=== PATIENT | female | born 1985 | race Caucasian/White ===

== ENCOUNTER 2016-10-21 16:52 | Inpatient (IN) | payer MEDICAID, OTHER ==
[2016-10-21 16:52] VITALS: BMI 36.2
[2016-10-21] MEDS ORDERED: Sodium Chloride 0.9% 1,000 ML IV STA (17:08)
--- NOTE | 2016-10-21 17:11 | ED PDOC ---
HPI: Abdomen Time Seen by Provider: 10/21/16 17:00 Chief Complaint (Nursing): GI Problem Chief Complaint (Provider): abdominal pain History Per: Patient (30 y/o female 9 months vaginal delivery here with complaint of moderate/severate hypogastric abdominal pain worsening with rice consumption today. Notes diarrhea and self-induced vomiting. No fevers/ chills. No abdominal surgeries. States she is ending menses and has had similar symptoms in past at end of menses.) Past Medical History Reviewed: Historical Data, Nursing Documentation, Vital Signs Vital Signs: Last Vital Signs Temp 98.7 F 10/21/16 16:54 Pulse 74 10/21/16 16:54 Resp 16 10/21/16 16:54 BP 113/53 L 10/21/16 16:54 Pulse Ox 100 10/21/16 17:12 - Family History Family History: States: No Known Family Hx - Home Medications Home Medications: Ambulatory Orders Medication Instructions Recorded Vit No.126/Iron/FA 1 each PO DAILY 01/08/16 [Classic Tablet] - Allergies Allergies/Adverse Reactions: Allergies Allergy/AdvReac Type Severity Reaction Status Date / Time No Known Allergies Allergy Verified 10/21/16 16:54 Review of Systems ROS Statement: Except As Marked, All Systems Reviewed And Found Negative Gastrointestinal: Positive for: Abdominal Pain, Diarrhea Physical Exam - Reviewed Nursing Documentation Reviewed: Yes Vital Signs Reviewed: Yes - Physical Exam Appears: Positive for: Well, Non-toxic, No Acute Distress Head Exam: Positive for: ATRAUMATIC, NORMAL INSPECTION, NORMOCEPHALIC Skin: Positive for: Normal Color, Warm, DRY Eye Exam: Positive for: EOMI, Normal appearance, PERRL ENT: Positive for: Normal ENT Inspection Neck: Positive for: Normal, Painless ROM Cardiovascular/Chest: Positive for: Regular Rate, Rhythm Respiratory: Positive for: CNT, Normal Breath Sounds Gastrointestinal/Abdominal: Positive for: Normal Exam, Bowel Sounds (hypoactive bowel sounds. ? hypogastric tenderness noted.), Soft Back: Positive for: Normal Inspection Extremity: Positive for: Normal ROM Neurologic/Psych: Positive for: Alert, Oriented - Laboratory Results Result Diagrams: 10/21/16 17:15 10/21/16 17:15 Urine POC: Negative Urine dip results: Positive for: Leukocyte Esterase, Blood - ECG O2 Sat by Pulse Oximetry: 100 - Progress ED Course And Treament: NS 1 liter wide open pepcid 20 mg iv x 1 dose zofran 4 mg iv x 1 dose morphine 4 mg iv x 1 dose; prepped for CT abdomen/pelvis udip : (+) blood (+) leuk (patient on last day of menses) will send for ucx. obstructive series: IMPRESSION: Severe constipation with marked distension of the right colon with feces. Oral contrast is seen within the stomach. Fleet enema ordered. Patient pending CT abd/pelvis. Disposition - Clinical Impression Clinical Impression: Abdominal pain - Patient ED Disposition Is Patient to be Admitted: Transfer of Care - Disposition Disposition: Transfer of Care Disposition Time: 20:00 Condition: FAIR Patient Signed Over To: Aliyah Wagoner Handoff Comments: pending CT/re-eval after medication.
[2016-10-21] MEDS ORDERED: Iohexol 240 (50 ml) PO STA (17:18)
[2016-10-21 17:24] LABS: BASO # 0.1 K/uL (0.0-0.2); BASO % 0.5 % (0.0-2.0); EOS # 0.4 K/uL (0.0-0.7); EOS % 2.4 % (0.0-4.0); HEMATOCRIT 41.8 % (34.0-47.0); LYMPH # 1.3 K/uL (1.0-4.3); LYMPH % 6.9 % (20.0-40.0); MEAN CELL VOLUME 74.2 fl (81.0-99.0); MEAN CORPUSCULAR HEMOGLOBIN 24.9 pg (27.0-31.0); MEAN CORPUSCULAR HGB CONC 33.6 g/dL (33.0-37.0); MEAN PLATELET VOLUME 7.7 fl (7.2-11.7); MONO # 0.6 K/uL (0.0-0.8); MONO % 3.4 % (0.0-10.0); NEUT # 16.1 K/uL (1.8-7.0); NEUT % 86.8 % (50.0-75.0); PLATELET COUNT 309 K/uL (130-400); RED CELL DISTRIBUTION WIDTH 16.2 % (11.5-14.5); WHITE BLOOD COUNT 18.5 K/uL (4.8-10.8)
[2016-10-21] MEDS ORDERED: Iohexol 240 (50 ml) ONE (17:40)
[2016-10-21 17:41] LABS: ALB/GLOB RATIO 1.1 (1.0-2.1); ALKALINE PHOSPHATASE 121 U/L (38-126); ALT/SGPT 30 U/L (9-52); AST/SGOT 44 U/L (14-36); BILIRUBIN,TOTAL 0.9 mg/dl (0.2-1.3); BLOOD UREA NITROGEN 15 mg/dl (7-17); CALCIUM 9.1 mg/dL (8.4-10.2); CARBON DIOXIDE 21 mmol/L (22-30); CHLORIDE 104 mmol/L (98-107); GFR AFRICAN-AMERICAN > 60; GLUCOSE,RANDOM 156 mg/dL (65-105); LIPASE 46 U/L (23-300); SODIUM 135 mmol/l (132-148)
[2016-10-21 17:44] LABS: POTASSIUM 4.7 MMOL/L (3.6-5.0)
[2016-10-21 17:47] LABS: RBC URINE 1681 /hpf (0-3); URINE BACTERIA OCC (<OCC); URINE BILIRUBIN NEGATIVE (NEGATIVE); URINE BLOOD LARGE (NEGATIVE); URINE COLOR AMBER (YELLOW); URINE GLUCOSE (UA) NEG (Normal); URINE KETONE TRACE mg/dL (NEGATIVE); URINE LEUKOCYTE ESTERASE SMALL Leu/uL (Negative); URINE PROTEIN 100 mg/dL (NEGATIVE); URINE UROBILINOGEN 0.2-1.0 mg/dL (0.2-1.0); WBC CLUMPS MOD /hpf; WBC URINE 61 /hpf (0-5)
--- NOTE | 2016-10-21 18:36 | RAD ---
PROCEDURE: Radiographs of the chest and abdomen (obstructive series) HISTORY: abdominal pain COMPARISON: No prior. FINDINGS: CHEST: The cardiomediastinal silhouette appears within normal limits of size. No focal consolidation, significant pleural effusion, or definite pneumothorax identified. Please note that chest x-ray has limited sensitivity for the detection of pulmonary masses. ABDOMEN AND PELVIS: Severe constipation with marked distension of the right colon with feces. Oral contrast is seen within the stomach. No definite free air. No acute osseous abnormality is detected. IMPRESSION: Severe constipation with marked distension of the right colon with feces. Oral contrast is seen within the stomach.
[2016-10-21] MEDS ORDERED: Iohexol 300 100 ML IJ ONE (19:35)
[2016-10-21] MEDS ORDERED: Sodium Chloride 0.9% 50 ML IV ONE (19:35)
[2016-10-21 19:42] LABS: BASOPHIL 1 % (0-2); EOSINOPHIL 1 % (0-7); NEUTROPHIL 88 % (42-75); REACTIVE LYMPHOCYTES 1 % (0-0); TOTAL CELLS COUNTED 100
--- NOTE | 2016-10-21 20:39 | CT ---
EXAM: CT Abdomen and Pelvis With Intravenous Contrast. CLINICAL HISTORY: 30 years old, female; Pain; Abdominal pain; Generalized TECHNIQUE: Axial computed tomography images of the abdomen and pelvis with intravenous contrast. This CT exam was performed using one or more of the following dose reduction techniques: automated exposure control, adjustment of the mA and/or kV according to patient size, and/or use of iterative reconstruction technique. Coronal and sagittal reformatted images were created and reviewed. CONTRAST: 95 mL of Omnipaque administered intravenously. EXAM DATE/TIME: 10/21/2016 5:18 PM COMPARISON: No relevant prior studies available. FINDINGS: LIMITATIONS: Exam is somewhat limited by mild streak/motion artifact. LOWER THORAX: No infiltrate seen in the lung bases. ABDOMEN: LIVER: Hepatomegaly, with the liver measuring 20 cm in length on the coronal images. GALLBLADDER AND BILE DUCTS: No CT evidence of acute cholecystitis. No evidence of significant biliary ductal dilatation. PANCREAS: No CT evidence of acute pancreatitis. SPLEEN: No acute abnormality of the spleen identified. ADRENALS: No acute abnormality of the adrenal glands identified. KIDNEYS AND URETERS: No acute abnormality of the kidneys identified. No evidence of significant hydrouereteronephrosis. STOMACH AND BOWEL: Focal wall thickening at the cecal base, most likely reactive in etiology, related to the appendicitis. Otherwise, no significant abnormality of the bowel is identified. No acute abnormality of the stomach or duodenum identified. No evidence of small bowel obstruction. APPENDIX: Appendix is seen, extending medially and superiorly from the cecum, images 113-138 of series 3. It is abnormally dilated, measuring up to 1.4 cm in diameter (normal less than 6 mm). Its lumen is fluid-filled. Its wall enhances. Its wall is thickened. There are mild inflammatory changes in the periappendiceal fat. Findings are compatible with acute appendicitis. No nearby extraluminal air seen to suggest perforated appendicitis. No evidence of a significant focal fluid collection or abscess. PELVIS: BLADDER: No acute abnormality of the bladder identified. REPRODUCTIVE:No acute abnormality of the reproductive organs is seen. No acute abnormality of the uterus identified. No evidence of large adnexal masses. ABDOMEN and PELVIS: INTRAPERITONEAL SPACE: Small amount of free fluid in the cul-de-sac. No evidence of free air. BONES/JOINTS: No acute fractures or other acute bony abnormality noted. SOFT TISSUES: No acute abnormality of the visualized soft tissues is seen. VASCULATURE: No evidence of abdominal aortic aneurysm. No evidence of periaortic hemorrhage. LYMPH NODES: No evidence of diffuse lymphadenopathy. IMPRESSION: - Acute appendicitis. There is no evidence of abscess formation or perforation. - See above for remaining findings.
[2016-10-21] MEDS ORDERED: Piperacillin/Tazobact 3.375 GM in Sodium Chloride 0.9% 100 ML IVPB ONE (20:55)
[2016-10-21] MEDS ORDERED: Piperacillin/Tazobact 3.375 gm Inj IVPB ONE (21:02)
--- NOTE | 2016-10-21 21:02 | ED PDOC ---
- Laboratory Results Result Diagrams: 10/21/16 17:15 10/21/16 17:15 Urine POC: Negative - ECG ECG: Positive for: Viewed By Me (reviewed by ED attending) ECG Rhythm: Positive for: Sinus Rhythm O2 Sat by Pulse Oximetry: 100 - Progress ED Course And Treament: Case endorsed to mortgage underwriter from [employer] CASTILLO pending CT abd/pelvis EXAM: CT Abdomen and Pelvis With Intravenous Contrast. CLINICAL HISTORY: 30 years old, female; Pain; Abdominal pain; Generalized TECHNIQUE: Axial computed tomography images of the abdomen and pelvis with intravenous contrast. This CT exam was performed using one or more of the following dose reduction techniques : automated exposure control, adjustment of the mA and/or kV according to patient size, and/ or use of iterative reconstruction technique. Coronal and sagittal reformatted images were created and reviewed. CONTRAST: 95 mL of Omnipaque administered intravenously. EXAM DATE/TIME: 10/21/2016 5:18 PM COMPARISON: No relevant prior studies available. FINDINGS: LIMITATIONS: Exam is somewhat limited by mild streak/motion artifact. LOWER THORAX: No infiltrate seen in the lung bases. ABDOMEN: LIVER: Hepatomegaly, with the liver measuring 20 cm in length on the coronal images. GALLBLADDER AND BILE DUCTS: No CT evidence of acute cholecystitis. No evidence of significant biliary ductal dilatation. PANCREAS: No CT evidence of acute pancreatitis. SPLEEN: No acute abnormality of the spleen identified. ADRENALS: No acute abnormality of the adrenal glands identified. KIDNEYS AND URETERS: No acute abnormality of the kidneys identified. No evidence of significant hydrouereteronephrosis. STOMACH AND BOWEL: Focal wall thickening at the cecal base, most likely reactive in etiology, related to the appendicitis. Otherwise, no significant abnormality of the bowel is identified. No acute abnormality of the stomach or duodenum identified. No evidence of small bowel obstruction. APPENDIX: Appendix is seen, extending medially and superiorly from the cecum, images 113-138 of series 3. It is abnormally dilated, measuring up to 1.4 cm in diameter (normal less than 6 mm). Its lumen is fluid-filled. Its wall enhances. Its wall is thickened. There are mild inflammatory changes in the periappendiceal fat. Findings are compatible with acute appendicitis. No nearby extraluminal air seen to suggest perforated appendicitis. No evidence of a significant focal fluid collection or abscess. PELVIS: BLADDER: No acute abnormality of the bladder identified. REPRODUCTIVE:No acute abnormality of the reproductive organs is seen. No acute abnormality of the uterus identified. No evidence of large adnexal masses. ABDOMEN and PELVIS: INTRAPERITONEAL SPACE: Small amount of free fluid in the cul-de-sac. No evidence of free air. BONES/JOINTS: No acute fractures or other acute bony abnormality noted. SOFT TISSUES: No acute abnormality of the visualized soft tissues is seen. VASCULATURE: No evidence of abdominal aortic aneurysm. No evidence of periaortic hemorrhage. LYMPH NODES: No evidence of diffuse lymphadenopathy. IMPRESSION: - Acute appendicitis. There is no evidence of abscess formation or perforation. - See above for remaining findings Patient given IV zosyn dose in ED. Case discussed with Dr. Krishnan, Vp Clinical on-call, for admission. Case discussed with Dr. Cr; Surgeon on-call; recommends admitting under Hospitalist, NPO after midnight, and likely surgery in am. Case discussed with Dr. Gaspar, Hospitalist on-call, for admission. Disposition - Clinical Impression Clinical Impression: Appendicitis, UTI (urinary tract infection) - POA Present On Arrival: None - Disposition Disposition: Admitted as In-Patient Disposition Time: 22:00 Condition: FAIR
[2016-10-21 21:49] LABS: PARTIAL THROMBOPLASTIN TIME 25.7 SECONDS (23.3-32.5)
--- NOTE | 2016-10-21 21:58 | CP.PCM.HP ---
History of Present Illness - History of Present Illness History of Present Illness: CC: abd pain, n/v HPI: This is a 30 y/o female with no chronic medical problems presenting with abdominal pain from about 1 day ago, now accompanied by n/v and frequent bowel mvmts. She states that pain is in R side of abdomen. Denies f/c. Denies diarrhea. States she initially thought she had food poisoning, but symptoms did not get better, so she came in. ROS: 14 systems reviewed, negative other than HPI MHx: None SHx: Dental surgery in the past Allergy: NKDA Medications: None Family Hx: reviewed, no relevant findings Social Hx: Lives with child, no tobacco, rare EtOH Present on Admission - Present on Admission Any Indicators Present on Admission: No Past Patient History - Past Social History Smoking Status: Never Smoked - PSYCHIATRIC Hx Substance Use: No - SURGICAL HISTORY Hx Surgeries: Yes Meds Allergies/Adverse Reactions: Allergies Allergy/AdvReac Type Severity Reaction Status Date / Time No Known Allergies Allergy Verified 10/21/16 16:54 Physical Exam - Constitutional Appears: No Acute Distress - Head Exam Head Exam: ATRAUMATIC, NORMOCEPHALIC - Eye Exam Eye Exam: EOMI, PERRL - ENT Exam ENT Exam: Mucous Membranes Moist - Neck Exam Neck exam: Positive for: Full Rom - Respiratory Exam Respiratory Exam: Clear to Auscultation Bilateral, NORMAL BREATHING PATTERN - Cardiovascular Exam Cardiovascular Exam: REGULAR RHYTHM, +S1, +S2 - GI/Abdominal Exam GI & Abdominal Exam: Normal Bowel Sounds, Soft, Tenderness - Extremities Exam Extremities exam: Positive for: full ROM, normal inspection - Neurological Exam Neurological exam: Alert, CN II-XII Intact, Oriented x3 - Psychiatric Exam Psychiatric exam: Normal Affect, Normal Mood - Skin Skin Exam: Dry, Warm Results - Vital Signs Recent Vital Signs: Last Vital Signs Temp 98.7 F 10/21/16 16:54 Pulse 74 10/21/16 16:54 Resp 16 10/21/16 16:54 BP 113/53 L 10/21/16 16:54 Pulse Ox 100 10/21/16 21:27 - Labs Result Diagrams: 10/21/16 17:15 10/21/16 17:15 Labs: Laboratory Results - last 24 hr 10/21/16 10/21/16 10/21/16 17:15 17:37 21:25 WBC 18.5 H RBC 5.63 H Hgb 14.0 Hct 41.8 MCV 74.2 L D MCH 24.9 L MCHC 33.6 RDW 16.2 H Plt Count 309 D MPV 7.7 Neut % (Auto) 86.8 H Lymph % (Auto) 6.9 L Howard % (Auto) 3.4 Eos % (Auto) 2.4 Baso % (Auto) 0.5 Neut # 16.1 H Lymph # 1.3 Howard # 0.6 Eos # 0.4 Baso # 0.1 Neutrophils % (Manual) 88 H Lymphocytes % (Manual) 6 L Reactive Lymphs % 1 H Monocytes % (Manual) 3 Eosinophils % (Manual) 1 Basophils % (Manual) 1 Platelet Estimate Normal Poikilocytosis (manual Slight Anisocytosis (manual) Slight Microcytosis (manual) Slight Tear Drop Cells Slight Ovalocytes Slight PT 10.8 INR 1.04 APTT 25.7 Sodium 135 Potassium 4.7 Chloride 104 Carbon Dioxide 21 L Anion Gap 15 BUN 15 Creatinine 0.7 Est GFR ( Amer) > 60 Est GFR (Non-Af Amer) > 60 Random Glucose 156 H Calcium 9.1 Total Bilirubin 0.9 AST 44 H D ALT 30 Alkaline Phosphatase 121 Total Protein 8.0 Albumin 4.2 Globulin 3.8 Albumin/Globulin Ratio 1.1 Lipase 46 Urine Color Tracee Urine Clarity Turbid Urine pH 8.0 Ur Specific [place] 1.027 Urine Protein 100 Urine Glucose (UA) Neg Urine Ketones Trace Urine Blood Large Urine Nitrate Negative Urine Bilirubin Negative Urine Urobilinogen 0.2-1.0 Ur Leukocyte Esterase Small Urine RBC (Auto) 1681 H Urine WBC Clumps (Auto) Mod H Urine Microscopic WBC 61 H Ur Squamous Epith Cells 14 H Amorphous Sediment Occ H Urine Bacteria Occ H - Imaging and Cardiology CT scan - abdomen Status: Report reviewed by me (IMPRESSION:) Assessment & Plan (1) Appendicitis Assessment and Plan: 30 y/o female admitted with appendicitis and possible UTI. 1) Appendicitis -Cont NPO, IVF -Cont Zosyn IV -Pain mgmt as per scale -Surgical consult ([facility]) 2) UTI --zosyn should cover 3) DVT PPx -- SCDs only for now Status: Acute (2) UTI (urinary tract infection) Status: Acute
[2016-10-21] MEDS: Piperacillin/Tazobact 3.375 GM in Sodium Chloride 0.9% 100 ML IVPB SCH (22:33)
[2016-10-21] MEDS: Sodium Chloride 0.9% 1,000 ML IV SCH (23:17)
--- NOTE | 2016-10-22 00:35 | CP.PCM.CON ---
<Anmol Krishnan - Last Filed: 10/22/16 00:27> History of Present Illness - History of Present Illness History of Present Illness: General Surgery Consult Re: Acute Appendicitis HPI: 30F presents to ED C/O periumbilical and RLQ abdominal pain. The pain began yesterday and she thought it would pass after she had a BM but it persisted. She did have a loose BM today. + chills. Denies nausea, but induced emesis herself x 1 to see if it would alleviate her pain, which it did not. PMH: Denies PSH: wisdom teeth removal SH: No tobacco or drug use, social EtOH. Has 9 month old child All: NKDA Meds: Denies Review of Systems - Review of Systems All systems: reviewed and no additional remarkable complaints except (as per HPI ) Past Patient History - Past Social History Smoking Status: Never Smoked - MUSCULOSKELETAL/RHEUMATOLOGICAL Hx Falls: No - PSYCHIATRIC Hx Substance Use: No - SURGICAL HISTORY Hx Surgeries: Yes Meds Allergies/Adverse Reactions: Allergies Allergy/AdvReac Type Severity Reaction Status Date / Time No Known Allergies Allergy Verified 10/21/16 16:54 - Medications Medications: Current Medications Sodium Chloride (Sodium Chloride 0.9%) 1,000 mls @ 100 mls/hr IV .Q10H [facility] Stop: 10/22/16 17:59 Last Admin: 10/21/16 23:17 Dose: 100 mls/hr Piperacillin Sod/Tazobactam (Sod 3.375 gm/ Sodium Chloride) 100 mls @ 100 mls/ hr IVPB Q6 [facility] Last Admin: 10/21/16 22:33 Dose: Not Given Morphine Sulfate (Morphine) 1 mg IVP Q4 PRN PRN Reason: Pain, Mild (1-3) Morphine Sulfate (Morphine) 2 mg IVP Q6 PRN PRN Reason: Pain, moderate (4-7) Ondansetron HCl (Zofran Inj) 4 mg IVP Q6 PRN PRN Reason: Nausea/Vomiting Physical Exam - Constitutional Appears: Non-toxic, No Acute Distress - Head Exam Head Exam: ATRAUMATIC, NORMOCEPHALIC - Eye Exam Eye Exam: EOMI. absent: Scleral icterus - ENT Exam ENT Exam: Mucous Membranes Moist Additional comments: trachea midline - Respiratory Exam Respiratory Exam: NORMAL BREATHING PATTERN. absent: Respiratory Distress - Cardiovascular Exam Cardiovascular Exam: RRR, +S1, +S2 - GI/Abdominal Exam GI & Abdominal Exam: Guarding, Rebound (mild), Soft, Tenderness (in RLQ and periumbilical on R). absent: Distended, Firm, Rigid - Rectal Exam Rectal Exam: Deferred - Extremities Exam Extremities exam: Positive for: pedal pulses present. Negative for: calf tenderness - Back Exam Back exam: absent: CVA tenderness (L), CVA tenderness (R) - Neurological Exam Neurological exam: Alert, Oriented x3 - Psychiatric Exam Psychiatric exam: Normal Affect, Normal Mood - Skin Skin Exam: Dry, Warm Results - Vital Signs Recent Vital Signs: Last Vital Signs Temp 98.7 F 10/21/16 23:17 Pulse 74 10/21/16 23:17 Resp 16 10/21/16 23:17 BP 113/53 L 10/21/16 23:17 Pulse Ox 100 10/21/16 22:31 - Labs Result Diagrams: 10/21/16 17:15 10/21/16 17:15 - Imaging and Cardiology CT scan - abdomen Status: Image reviewed by me, Report reviewed by me Assessment & Plan - Assessment and Plan (Free Text) Assessment: 30F with acute appendicitis Plan: NPO IVF Abx Zofran Morphine To OR (tentatively around 2PM) 10/22/16 D/W Dr. Tayo Krishnan PGY3 <Marco A Cr B - Last Filed: 10/26/16 21:15> Results - Vital Signs Recent Vital Signs: Last Vital Signs Temp 98.7 F 10/23/16 07:58 Pulse 83 10/23/16 07:58 Resp 20 10/23/16 07:58 BP 97/61 L 10/23/16 07:58 Pulse Ox 95 10/23/16 07:58 - Labs Result Diagrams: 10/23/16 06:05 10/23/16 06:05 Attending/Attestation - Attestation I have personally seen and examined this patient.: Yes I have fully participated in the care of the patient.: Yes I have reviewed all pertinent clinical information: Yes Notes (Text): 10/26/16 21:14 Pt was seen and examined at bedside on 10/22/16 Agree with above note and assessment Pt with Acute Appendicitis and Leukocytosis OR for Lap Appendectomy poss Open Consent Plan d/w pt in detail Risk and benefit explained in detail.
[2016-10-22] MEDS: Piperacillin/Tazobact 3.375 GM in Sodium Chloride 0.9% 100 ML IVPB SCH ×4 (03:27→22:59)
[2016-10-22 07:00] LABS: BLOOD UREA NITROGEN 11 mg/dl (7-17); CALCIUM 7.9 mg/dL (8.4-10.2); CARBON DIOXIDE 26 mmol/L (22-30); CHLORIDE 105 mmol/L (98-107); GFR AFRICAN-AMERICAN > 60; GLUCOSE,RANDOM 97 mg/dL (65-105); POTASSIUM 3.6 MMOL/L (3.6-5.0); SODIUM 144 mmol/l (132-148)
[2016-10-22 07:01] LABS: BASO # 0.1 K/uL (0.0-0.2); BASO % 0.6 % (0.0-2.0); EOS # 0.4 K/uL (0.0-0.7); EOS % 3.1 % (0.0-4.0); HEMATOCRIT 38.5 % (34.0-47.0); LYMPH # 1.7 K/uL (1.0-4.3); LYMPH % 13.5 % (20.0-40.0); MEAN CELL VOLUME 76.1 fl (81.0-99.0); MEAN CORPUSCULAR HEMOGLOBIN 24.6 pg (27.0-31.0); MEAN CORPUSCULAR HGB CONC 32.3 g/dL (33.0-37.0); MEAN PLATELET VOLUME 7.6 fl (7.2-11.7); MONO # 0.9 K/uL (0.0-0.8); MONO % 7.4 % (0.0-10.0); NEUT # 9.5 K/uL (1.8-7.0); NEUT % 75.4 % (50.0-75.0); RED CELL DISTRIBUTION WIDTH 15.5 % (11.5-14.5); WHITE BLOOD COUNT 12.6 K/uL (4.8-10.8)
--- NOTE | 2016-10-22 09:52 | CP.PCM.PN ---
Subjective - Date & Time of Evaluation Date of Evaluation: 10/22/16 Time of Evaluation: 09:45 - Subjective Subjective: No fever still with abd pain but better no nausea nor vomiting no diarrhea denies CP , no SOB Objective - Vital Signs/Intake and Output Vital Signs (last 24 hours): Temp Pulse Resp BP Pulse Ox 98.5 F 75 20 95/63 L 97 10/22/16 08:27 10/22/16 08:27 10/22/16 08:27 10/22/16 08:27 10/22/16 08:27 - Medications Medications: Current Medications Sodium Chloride (Sodium Chloride 0.9%) 1,000 mls @ 100 mls/hr IV .Q10H [facility] Stop: 10/22/16 17:59 Last Admin: 10/21/16 23:17 Dose: 100 mls/hr Piperacillin Sod/Tazobactam (Sod 3.375 gm/ Sodium Chloride) 100 mls @ 100 mls/ hr IVPB Q6 [facility] Last Admin: 10/22/16 09:36 Dose: 100 mls/hr Influenza Virus Vaccine (Afluria (Pf)(5yr & Older)) 0.5 ml IM .ONCE ONE Stop: 10/22/16 10:01 Last Admin: 10/22/16 09:37 Dose: 0.5 ml Morphine Sulfate (Morphine) 1 mg IVP Q4 PRN PRN Reason: Pain, Mild (1-3) Morphine Sulfate (Morphine) 2 mg IVP Q6 PRN PRN Reason: Pain, moderate (4-7) Ondansetron HCl (Zofran Inj) 4 mg IVP Q6 PRN PRN Reason: Nausea/Vomiting - Labs Labs: 10/22/16 06:10 10/22/16 06:10 PT 10.8 SECONDS (9.6-11.2) 10/21/16 21:25 INR 1.04 (0.92-1.08) 10/21/16 21:25 APTT 25.7 SECONDS (23.3-32.5) 10/21/16 21:25 - Constitutional Appears: No Acute Distress - Head Exam Head Exam: ATRAUMATIC, NORMAL INSPECTION, NORMOCEPHALIC - Eye Exam Eye Exam: EOMI, Normal appearance, PERRL Pupil Exam: NORMAL ACCOMODATION - ENT Exam ENT Exam: Mucous Membranes Dry, Normal External Ear Exam - Neck Exam Neck Exam: Full ROM. absent: Meningismus - Respiratory Exam Respiratory Exam: NORMAL BREATHING PATTERN. absent: Rales, Wheezes, Respiratory Distress - Cardiovascular Exam Cardiovascular Exam: REGULAR RHYTHM, +S1, +S2 - GI/Abdominal Exam GI & Abdominal Exam: Soft, Tenderness (lower abdominal tenderness), Normal Bowel Sounds - Extremities Exam Extremities Exam: Full ROM, Normal Capillary Refill, Normal Inspection. absent : Calf Tenderness, Pedal Edema - Back Exam Back Exam: Full ROM, NORMAL INSPECTION, vertebral tenderness. absent: CVA tenderness (L), CVA tenderness (R), paraspinal tenderness - Neurological Exam Neurological Exam: Alert, Awake, CN II-XII Intact, Normal Gait, Oriented x3 Neuro motor strength exam: Left Upper Extremity: 5, Right Upper Extremity: 5, Left Lower Extremity: 5, Right Lower Extremity: 5 - Psychiatric Exam Psychiatric exam: Normal Affect, Normal Mood - Skin Skin Exam: Dry, Normal Color, Warm Assessment and Plan (1) Acute appendicitis Status: Acute (2) UTI (urinary tract infection) Status: Acute (3) DVT prophylaxis Status: Acute - Assessment and Plan (Free Text) Assessment: 30 y/o lady came in bec of abd pain more on the RLQ accompanied by N/V and frequent BM. WBC Ct = 18k. CT of abd showed changes consistent with Acute Appendicitis. 1) Acute appendicitis Status: Acute CT scan: Acute appendicitis WBC CT 18k now down to 12k cont IV Zosyn Surgery consulted- plan for Lap Appendectomy today IVF hydration NPO Pain mgt (2) UTI (urinary tract infection) Status: Acute Urinalysis - 61 WBC Yrine c/s Pt on Zosyn (3) DVT prophylaxis Status: Acute Lovenox post op
[2016-10-22] MEDS ORDERED: Influenza Vaccine(5yr & older) 0.5 ML/45 MCG IM ONE (10:00)
[2016-10-22] MEDS: Sodium Chloride 0.9% 1,000 ML IV SCH (10:19)
[2016-10-22] MEDS ORDERED: Propofol 10 mg/ml Inj (20 ML) ONE (13:50)
[2016-10-22] MEDS ORDERED: Midazolam 2 MG/2 ML VIAL ONE (13:50)
[2016-10-22] MEDS ORDERED: Succinylcholine 200 mg/10 ml Inj IV ONE (13:50)
[2016-10-22] MEDS ORDERED: Rocuronium 10 mg/ml (5 ml) ONE (13:50)
[2016-10-22] MEDS ORDERED: ePHEDrine 50 mg/ml Inj ONE (13:55)
[2016-10-22] MEDS ORDERED: Lidocaine 4% (Laryng-O-Jet) Kit MM ONE (13:57)
[2016-10-22] MEDS ORDERED: Bupivacaine 0.5% Inj(30mL) ONE (14:30)
[2016-10-22] MEDS ORDERED: Lidocaine 1% Inj (20ml) ONE (14:32)
[2016-10-22] MEDS ORDERED: Dexamethasone 4 mg/1 ml ONE (14:56)
[2016-10-22] MEDS ORDERED: Desflurane Inhalation Anesthetic Liq (240 ml) ONE (14:58)
[2016-10-22] MEDS ORDERED: Neostigmine Methylsulfate 3mg/3ml Syringe IV ONE (15:06)
[2016-10-22] MEDS ORDERED: Neostigmine Methylsulfate 2 MG/2 ML ML IV ONE (15:06)
[2016-10-22] MEDS ORDERED: Lidocaine 1% Inj (20ml) IJ ONE (15:42)
[2016-10-22] MEDS ORDERED: Bupivacaine 0.5% 50 ML IJ ONE (15:42)
[2016-10-22] MEDS ORDERED: Naloxone 0.4 mg/ml Inj (Adult) ONE (15:55)
[2016-10-22] MEDS: HYDROmorphone 0.5 mg/0.5 ml ISec IVP PRN ×5 (16:15→17:12)
[2016-10-22] MEDS ORDERED: Lactated Ringer's 1,000 ML IV ONE ×2 (16:15→17:15)
--- NOTE | 2016-10-22 16:22 | PCM.SURG1 ---
Surgeon's Initial Post Op Note - Surgeon's Notes Surgeon: Dr. Cr Senior Research Scientist: Dr. Le PGY-1 Type of Anesthesia: General Endo Pre-Operative Diagnosis: acute appendicitis Operative Findings: see operative report Post-Operative Diagnosis: see operative report Operation Performed: laparoscopic appendectomy Specimen/Specimens Removed: appendix Estimated Blood Loss: EBL {In ML}: 5 Blood Products Given: N/A Drains Used: No Drains Post-Op Condition: Good Date of Surgery/Procedure: 10/22/16 Time of Surgery/Procedure: 15:00
[2016-10-22 23:36] VITALS: RESP 20
[2016-10-23] MEDS: Piperacillin/Tazobact 3.375 GM in Sodium Chloride 0.9% 100 ML IVPB SCH ×2 (04:18→10:51)
[2016-10-23 06:23] LABS: HEMATOCRIT 38.8 % (34.0-47.0); MEAN CELL VOLUME 76.3 fl (81.0-99.0); MEAN CORPUSCULAR HEMOGLOBIN 24.5 pg (27.0-31.0); MEAN CORPUSCULAR HGB CONC 32.1 g/dL (33.0-37.0); RED CELL DISTRIBUTION WIDTH 15.7 % (11.5-14.5); WHITE BLOOD COUNT 12.3 K/uL (4.8-10.8)
--- NOTE | 2016-10-23 07:07 | CP.PCM.PN ---
Subjective - Date & Time of Evaluation Date of Evaluation: 10/23/16 Time of Evaluation: 06:45 - Subjective Subjective: General Surgery Progress Note: Dr. Cr Pt S&E this morning at bedside. Patient reports some generalized abdominal pain. Denies nausea/vomiting, passing flatus. States she tolerated dinner. NAEO. Objective - Vital Signs/Intake and Output Vital Signs (last 24 hours): Temp Pulse Resp BP Pulse Ox 98 F 76 20 103/66 97 10/22/16 21:00 10/22/16 21:00 10/22/16 21:00 10/22/16 21:00 10/22/16 21:00 - Medications Medications: Current Medications Acetaminophen (Tylenol 325mg Tab) 650 mg PO Q6 PRN PRN Reason: Fever >100.4 F Enoxaparin Sodium (Lovenox) 40 mg SC DAILY [facility]SI PRN Reason: Protocol Piperacillin Sod/Tazobactam (Sod 3.375 gm/ Sodium Chloride) 100 mls @ 100 mls/ hr IVPB Q6 [facility] Last Admin: 10/23/16 04:18 Dose: 100 mls/hr Morphine Sulfate (Morphine) 4 mg IVP Q4 PRN PRN Reason: Pain, moderate (4-7) Last Admin: 10/22/16 22:59 Dose: 4 mg Ondansetron HCl (Zofran Inj) 4 mg IVP Q6 PRN PRN Reason: Nausea/Vomiting - Labs Labs: 10/23/16 06:05 10/22/16 06:10 PT 10.8 SECONDS (9.6-11.2) 10/21/16 21:25 INR 1.04 (0.92-1.08) 10/21/16 21:25 APTT 25.7 SECONDS (23.3-32.5) 10/21/16 21:25 - Constitutional Appears: No Acute Distress - Head Exam Head Exam: NORMOCEPHALIC - Eye Exam Eye Exam: Normal appearance Pupil Exam: NORMAL ACCOMODATION - ENT Exam ENT Exam: Mucous Membranes Moist - Respiratory Exam Respiratory Exam: NORMAL BREATHING PATTERN - Cardiovascular Exam Cardiovascular Exam: +S1, +S2 - GI/Abdominal Exam GI & Abdominal Exam: Soft, Tenderness - Neurological Exam Neurological Exam: Alert, Awake, Oriented x3 - Psychiatric Exam Psychiatric exam: Normal Mood - Skin Skin Exam: Dry, Intact, Warm Assessment and Plan - Assessment and Plan (Free Text) Assessment: 30F w/ acute appendicitis s/p laparoscopic appendectomy POD#1 -Clear for D/C from surgical standpoint -Regular diet -C/w Abx -C/w analgesics/anti-emetic -DVT/GI ppx -D/w Dr. Cr
[2016-10-23] MEDS ORDERED: Oxycodone/Acetaminophen 5/325 mg Tab PO PRN (07:13)
[2016-10-23 07:59] VITALS: BP 97/61; PULSE 83; TEMP 98.7; O2SAT 95
[2016-10-23 08:18] LABS: BLOOD UREA NITROGEN 10 mg/dl (7-17); CALCIUM 8.3 mg/dL (8.4-10.2); CARBON DIOXIDE 24 mmol/L (22-30); CHLORIDE 108 mmol/L (98-107); GFR AFRICAN-AMERICAN > 60; GLUCOSE,RANDOM 105 mg/dL (65-105); POTASSIUM 3.8 MMOL/L (3.6-5.0); SODIUM 144 mmol/l (132-148)
[2016-10-23] MEDS: Enoxaparin 40 mg Syringe SC SCH ×2 (08:25→08:35)
--- NOTE | 2016-10-23 12:25 | CP.PCM.DIS ---
Provider - Provider Date of Admission: 10/21/16 22:02 Attending physician: Matthias Gaspar MD Primary care physician: NO FAMILY PROVIDER Dr. Schmitt": patient can not recall last name Consults: Surgery Dr. Cisneros Time Spent in preparation of Discharge (in minutes): 40 Hospital Course - Lab Results Lab Results: Most Recent Lab Values WBC 12.3 K/uL (4.8-10.8) H 10/23/16 06:05 RBC 5.08 Mil/uL (3.80-5.20) 10/23/16 06:05 Hgb 12.4 g/dL (12.0-16.0) 10/23/16 06:05 Hct 38.8 % (34.0-47.0) 10/23/16 06:05 MCV 76.3 fl (81.0-99.0) L 10/23/16 06:05 MCH 24.5 pg (27.0-31.0) L 10/23/16 06:05 MCHC 32.1 g/dL (33.0-37.0) L 10/23/16 06:05 RDW 15.7 % (11.5-14.5) H 10/23/16 06:05 Plt Count 256 K/uL (130-400) 10/23/16 06:05 MPV 7.6 fl (7.2-11.7) 10/22/16 06:10 Neut % (Auto) 75.4 % (50.0-75.0) H 10/22/16 06:10 Lymph % (Auto) 13.5 % (20.0-40.0) L 10/22/16 06:10 [place] % (Auto) 7.4 % (0.0-10.0) 10/22/16 06:10 Eos % (Auto) 3.1 % (0.0-4.0) 10/22/16 06:10 Baso % (Auto) 0.6 % (0.0-2.0) 10/22/16 06:10 Neut # 9.5 K/uL (1.8-7.0) H 10/22/16 06:10 Lymph # 1.7 K/uL (1.0-4.3) 10/22/16 06:10 [place] # 0.9 K/uL (0.0-0.8) H 10/22/16 06:10 Eos # 0.4 K/uL (0.0-0.7) 10/22/16 06:10 Baso # 0.1 K/uL (0.0-0.2) 10/22/16 06:10 Neutrophils % (Manual) 88 % (42-75) H 10/21/16 17:15 Lymphocytes % (Manual) 6 % (20-50) L 10/21/16 17:15 Reactive Lymphs % 1 % (0-0) H 10/21/16 17:15 Monocytes % (Manual) 3 % (0-10) 10/21/16 17:15 Eosinophils % (Manual) 1 % (0-7) 10/21/16 17:15 Basophils % (Manual) 1 % (0-2) 10/21/16 17:15 Platelet Estimate Normal (NORMAL) 10/21/16 17:15 Poikilocytosis (manual Slight 10/21/16 17:15 Anisocytosis (manual) Slight 10/21/16 17:15 Microcytosis (manual) Slight 10/21/16 17:15 Tear Drop Cells Slight 10/21/16 17:15 Ovalocytes Slight 10/21/16 17:15 PT 10.8 SECONDS (9.6-11.2) 10/21/16 21:25 INR 1.04 (0.92-1.08) 10/21/16 21:25 APTT 25.7 SECONDS (23.3-32.5) 10/21/16 21:25 Sodium 144 mmol/l (132-148) 10/23/16 06:05 Potassium 3.8 MMOL/L (3.6-5.0) 10/23/16 06:05 Chloride 108 mmol/L (98-107) H 10/23/16 06:05 Carbon Dioxide 24 mmol/L (22-30) 10/23/16 06:05 Anion Gap 16 (10-20) 10/23/16 06:05 BUN 10 mg/dl (7-17) 10/23/16 06:05 Creatinine 0.8 mg/dL (0.7-1.2) 10/23/16 06:05 Est GFR ( Amer) > 60 10/23/16 06:05 Est GFR (Non-Af Amer) > 60 10/23/16 06:05 Random Glucose 105 mg/dL (65-105) 10/23/16 06:05 Calcium 8.3 mg/dL (8.4-10.2) L 10/23/16 06:05 Total Bilirubin 0.9 mg/dl (0.2-1.3) 10/21/16 17:15 AST 44 U/L (14-36) H D 10/21/16 17:15 ALT 30 U/L (9-52) 10/21/16 17:15 Alkaline Phosphatase 121 U/L (38-126) 10/21/16 17:15 Total Protein 8.0 G/DL (6.3-8.2) 10/21/16 17:15 Albumin 4.2 g/dL (3.5-5.0) 10/21/16 17:15 Globulin 3.8 gm/dL (2.2-3.9) 10/21/16 17:15 Albumin/Globulin Ratio 1.1 (1.0-2.1) 10/21/16 17:15 Lipase 46 U/L (23-300) 10/21/16 17:15 Urine Color Tracee (YELLOW) 10/21/16 17:37 Urine Clarity Turbid (Clear) 10/21/16 17:37 Urine pH 8.0 (5.0-8.0) 10/21/16 17:37 Ur Specific [place] 1.027 (1.003-1.030) 10/21/16 17:37 Urine Protein 100 mg/dL (NEGATIVE) 10/21/16 17:37 Urine Glucose (UA) Neg mg/dL (Normal) 10/21/16 17:37 Urine Ketones Trace mg/dL (NEGATIVE) 10/21/16 17:37 Urine Blood Large (NEGATIVE) 10/21/16 17:37 Urine Nitrate Negative (NEGATIVE) 10/21/16 17:37 Urine Bilirubin Negative (NEGATIVE) 10/21/16 17:37 Urine Urobilinogen 0.2-1.0 mg/dL (0.2-1.0) 10/21/16 17:37 Ur Leukocyte Esterase [place]/uL (Negative) 10/21/16 17:37 Urine RBC (Auto) 1681 /hpf (0-3) H 10/21/16 17:37 Urine WBC Clumps (Auto) Mod /hpf (NONE) H 10/21/16 17:37 Urine Microscopic WBC 61 /hpf (0-5) H 10/21/16 17:37 Ur Squamous Epith Cells 14 /hpf (0-5) H 10/21/16 17:37 Amorphous Sediment Occ /ul (<OCC) H 10/21/16 17:37 Urine Bacteria Occ (<OCC) H 10/21/16 17:37 - Hospital Course Hospital Course: 30 year old female who presented with abdominal pain with nausea/vomiting on . CT Abdomen/Pelvis showed evidence of Acute Appendicitis without Abscess. She underwent Lap Appendectomy by Surgeon Dr. Cisneros on 10/22/16. This morning she had some nause but no vomiting. She tolerated fruit, tea, and some isaac and she is passing flatus but has not had a bowel movement yet. Her pain is controlled on Percocet. I spoke with Dr. Cisneros's surgical coder Dr. Aris Le and patient has been cleared for discharge. ROS: NO CP, NO SOB, (+) Cough comes and goes, NO dysphagia/odynophagia, NO v/d, (+) Abdominal Pain at the Trocar Sites. NO SCHAFER, NO dizziness, NO edema, NO paresthesias, (+) Burning "a little" with urination. HEENT: NCA, EOMI, PERRLA, Oral Mucosa is moist and without erythema/exudate, NO cervical lymphadenopathy, NO thyromegaly Cardio: NS1 and NS2, NO M/R/G Respiratory: CTA B/L GI: BS x 4, Soft, (+)Tenderness around Trocar Sites, NO guarding/rebound tenderness Ext: Pulses are strong and equal, Capillary Refill is 2 seconds, NO edema Neuro: CN II through XII are grossly intact The following instructions were explained to patient: 1). May remove only the top bandages from Tro[place] Site but not the underlying bandages. Sutures are absorbable and will dissolve on their own. May shower on 10/24/16. 2). Schedule follow up with Dr. Cisneros to take place in 7 to 10 days from . Call his office at [phone]. He is located at [address] [place] [address]. 3). group captain prescription from [facility] located at [address] [place], [place] for Augmentin 875/125 mg and take 1 tablet by mouth every 12 hours (7 AM and 7 PM) starting tonight 10/23/16 at 7 PM until finished. You will receive 16 tablets. 4). You may use Percocet 5/325 mg 1 tablet by mouth every 6 hours only as needed for severe pain (pain level that is a 7 or above). You are provided with prescription containing 30 tablets. 5). You may use Tylenol Extra Strength 1 tablet every 6 hours as needed for mild to moderate pain. 6). Advance your diet slowly. Have bland foods for now. 7). Follow up with your primary care physician Dr. Sandoval for coordination of your medical care. Luis Olmstead D.O. Discharge Exam - Head Exam Head Exam: NORMOCEPHALIC Discharge Plan - Discharge Medications Prescriptions: Amoxicillin/Clavulanate [Augmentin 875 MG-125 MG Tab] 1 tab PO Q12 #16 tab - Follow Up Plan Condition: FAIR Disposition: HOME/ ROUTINE Referrals: FAMILY PROVIDER,NO [Primary Care Provider] -
[2016-10-23] MEDS ORDERED: Amoxicillin-Clav 875-125 mg Tab PO SCH (19:00)
--- NOTE | 2016-10-23 19:03 | CARD ---
APPROVED REPORT EKG Measurement Heart [id number] <Conclusion> Normal sinus rhythm with sinus arrhythmia Nonspecific T wave abnormality Abnormal ECG
--- NOTE | 2016-10-26 20:25 | OP ---
PROCEDURE DATE: 10/22/2016 PREOPERATIVE DIAGNOSES: 1. Acute appendicitis. 2. Leukocytosis. POSTOPERATIVE DIAGNOSES: 1. Acute appendicitis. 2. Pelvic purulent collection. 3. Leukocytosis. PROCEDURE DONE: 1. Laparoscopic appendectomy. 2. Laparoscopic drainage of pelvic abscess and collection. SURGEON: Dr. Cr PUMP STATION OPERATOR: Aris Le, PGY-2 resident ANESTHESIA: General endotracheal tube anesthesia. ESTIMATED BLOOD LOSS: Around 10 mL. DRAINS: None. PATHOLOGY: Appendix was sent for the pathology. COMPLICATIONS: None. INTRAOPERATIVE FINDINGS: The patient had acute suppurative appendicitis with purulent pelvic and periappendicular collection. INTRAOPERATIVE STEPS: This 30-year-old female was diagnosed with acute appendicitis . The patient was consented for laparoscopic appendectomy, possible open. Brought to the OR, placed supine on the operating table. After induction of the anesthesia, abdomen was prepped and draped in the usual sterile fashion. The supraumbilical transverse 1.5 cm incision was made after incising skin and subcutaneous tissue. The fascia was incised in the line of incision. Juan port was placed. Pneumo was created. A 5 mm port was placed in suprapubic region. A 12 mm port was placed in the left lower quadrant. Grasper and dissector was introduced and appendix was identified. The patient found to have a purulent pelvic collection that was drained first and the periappendicular collection was also drained and after suction irrigation and proper evacuation of the pelvic abscess and collection, the mesoappendix was resected with Harmonic scalpel. Base of the appendix was resected with [place] and after proper hemostasis and after drainage of all the purulent pelvic collection and the fluid, all the ports were taken out under vision. Pneumo was deflated. Appendix was sent off the table for the pathology. There was no apparent complication. The patient tolerated procedure well. Count of instrument and gauze was correct. The umbilical wound was closed in 2 layers, the fascia with 0 Vicryl interrupted suture, skin with a 4-0 Monocryl. Dry sterile dressing was applied. The patient tolerated the procedure well. Marco A Cr MD cc: [id number] TT: 10/26/2016 20:24:14 sn MTDD
== END 2016-10-23 15:48 | disposition home or self-care (01) | DRG 339 ==
LOC: H.ER 16:52 → H.ERHOLD 21:46 → OBSVTOIN 22:02 → H.MEDSURG1 23:02
PROVIDERS: ADMIT Internal Medicine; ATTEND Internal Medicine
PROC: 0W9J4ZZ Drainage of Pelvic Cavity, Percutaneous Endoscopic Approach (ICD-10-PCS; 2016-10-22)
PROC: 3E0234Z Introduction of Serum, Toxoid and Vaccine into Muscle, Percutaneous Approach (ICD-10-PCS; 2016-10-22)
PROC: 0DTJ4ZZ Resection of Appendix, Percutaneous Endoscopic Approach (ICD-10-PCS; principal; 2016-10-22 14:00)
DX: K35.3 Acute appendicitis with localized peritonitis (principal); N39.0 Urinary tract infection, site not specified; D72.829 Elevated white blood cell count, unspecified; Z23 Encounter for immunization